=== PATIENT | male | born 1955 | race Caucasian/White ===

== ENCOUNTER 2016-09-26 01:26 | Inpatient (IN) | payer BC, OTHER ==
[2016-09-26] MEDS ORDERED: AMIODARONE HCL200 M1 PO (01:42)
[2016-09-26] MEDS ORDERED: ASPIRIN EC81 MG PO (01:42)
[2016-09-26] MEDS ORDERED: FEROSUL325 M1 PO (01:43)
[2016-09-26] MEDS ORDERED: FUROSEMIDE40 M2 PO (01:43)
[2016-09-26] MEDS ORDERED: NIASPAN500 M1 PO (01:44)
[2016-09-26] MEDS ORDERED: PROTONIX40 M2 PO (01:44)
[2016-09-26] MEDS ORDERED: MIDODRINE HCL5 M1 PO (01:44)
[2016-09-26] MEDS ORDERED: PRAVASTATIN SOD20 M1 PO (01:45)
[2016-09-26] MEDS ORDERED: K-TAB ER20 ME1 PO (01:45)
[2016-09-26] MEDS ORDERED: FLOMAX0.4 M1 PO (01:46)
[2016-09-26] MEDS ORDERED: COUMADIN2 M1 PO (01:46)
[2016-09-26 01:49] LABS: ABG CO2 ARTERIAL 29 mmol/L (21-27); ARTERIAL BLD GAS O2 SATURATION 96 % (95-98); ARTERIAL BLOOD GAS PCO2 36 mmHg (32-45); ARTERIAL PO2 84 mmHg (70-100); BICARBONATE 28 mmol/L (21-28); BLOOD GAS BASE EXCESS 5 mM/L (-/+3); PH 7.49 Units (7.35-7.45)
[2016-09-26 04:19] LABS: ABG CO2 ARTERIAL 29 mmol/L (21-27); ARTERIAL BLD GAS O2 SATURATION 98 % (95-98); ARTERIAL BLOOD GAS PCO2 33 mmHg (32-45); BICARBONATE 28 mmol/L (21-28); BLOOD GAS BASE EXCESS 6 mM/L (-/+3); PH 7.54 Units (7.35-7.45)
[2016-09-26 04:20] LABS: ARTERIAL PO2 96 mmHg (70-100)
[2016-09-26 04:32] LABS: BASO % 0.2 % (0-2); HGB-HEMOGLOBIN 11.7 gm/dl (13.5-17.0); IMMATURE GRANULOCYTES ABSOLUTE 0.07 tho/cmm (0-0.03); IMMATURE GRANULOCYTES PERCENT 0.5 % (0-0.3); LYMPH % 7.9 % (20-45); LYMPH ABSOLUTE COUNT 1.1 tho/cmm (0.8-4.5); MCH (MEAN CORPUSCULAR HGB) 27.9 pg (28.0-32.0); MCHC MEAN CORPUSCULAR HGB CONC 32.5 % (32.0-36.0); MCV (MEAN CELL VOLUME) 85.7 fl (82.0-96.0); MEAN PLATELET VOLUME 8.7 cmc (9.4-12.4); MONO % 6.6 % (0-12); MONOCYTE ABSOLUTE COUNT 0.9 tho/cmm (0.0-1.2); NEUTROPHIL ABSOLUTE COUNT 11.9 tho/cmm (1.6-8.0); NEUTROPHIL-AUTOMATED 11.9 tho/cmm (1.6-8.0); NEUTROPHILS % 84.8 % (40-80); PLATELET COUNT 299 tho/cmm (150-450); RED CELL DISTRIBUTION WIDTH 16.1 % (12.4-16.4)
[2016-09-26 04:35] LABS: INR 1.6 INR (0.9-1.1); PROTHROMBIN TIME 18.8 SECONDS (9.0-13.6)
[2016-09-26 05:49] LABS: ALB/GLOB RATIO 0.5 (0.8-2.0); ALBUMIN 2.7 g/dl (3.5-5.0); ALKALINE PHOSPHATASE 143 U/L (33-138); ALT/SGPT 80 U/L (12-78); ANION GAP 14 mmol/L (0-20); AST/SGOT 78 U/L (10-40); BILIRUBIN,TOTAL 1.2 mg/dl (0.0-1.5); BLOOD UREA NITROGEN 40 mg/dl (6-24); CALCIUM 8.8 mg/dl (8.5-10.5); CARBON DIOXIDE-VENOUS 30 mmol/L (22-32); CHLORIDE 97 mmol/l (96-110); CREATININE 1.44 mg/dl (0.60-1.30); GLUCOSE 107 mg/dL (70-110); POTASSIUM 3.2 mmol/L (3.7-5.1); SODIUM 138 mmol/L (135-145); eGFR VALUE FOR BLACK 60 mL/Min
[2016-09-26 12:38] LABS: ANION GAP 13 mmol/L (0-20); BLOOD UREA NITROGEN 39 mg/dl (6-24); CALCIUM 8.3 mg/dl (8.5-10.5); CARBON DIOXIDE-VENOUS 30 mmol/L (22-32); CHLORIDE 100 mmol/l (96-110); CREATININE 1.45 mg/dl (0.60-1.30); GLUCOSE 106 mg/dL (70-110); SODIUM 140 mmol/L (135-145); eGFR VALUE FOR BLACK 59 mL/Min
[2016-09-26 12:58] LABS: POTASSIUM 2.8 mmol/L (3.7-5.1)
[2016-09-27 05:01] LABS: BASO % 0.2 % (0-2); HCT-HEMATOCRIT 34.1 % (36.0-53.5); HGB-HEMOGLOBIN 10.8 gm/dl (13.5-17.0); IMMATURE GRANULOCYTES ABSOLUTE 0.04 tho/cmm (0-0.03); IMMATURE GRANULOCYTES PERCENT 0.3 % (0-0.3); LYMPH % 9.9 % (20-45); LYMPH ABSOLUTE COUNT 1.3 tho/cmm (0.8-4.5); MCH (MEAN CORPUSCULAR HGB) 27.2 pg (28.0-32.0); MCHC MEAN CORPUSCULAR HGB CONC 31.7 % (32.0-36.0); MCV (MEAN CELL VOLUME) 85.9 fl (82.0-96.0); MEAN PLATELET VOLUME 9.2 cmc (9.4-12.4); MONOCYTE ABSOLUTE COUNT 1.3 tho/cmm (0.0-1.2); NEUTROPHIL ABSOLUTE COUNT 10.4 tho/cmm (1.6-8.0); NEUTROPHIL-AUTOMATED 10.4 tho/cmm (1.6-8.0); NEUTROPHILS % 79.6 % (40-80); PLATELET COUNT 268 tho/cmm (150-450); RED BLOOD COUNT 3.97 mil/cmm (4.40-5.70); RED CELL DISTRIBUTION WIDTH 16.2 % (12.4-16.4)
[2016-09-27 05:18] LABS: ALB/GLOB RATIO 0.4 (0.8-2.0); ALBUMIN 2.3 g/dl (3.5-5.0); ALKALINE PHOSPHATASE 126 U/L (33-138); ANION GAP 10 mmol/L (0-20); BILIRUBIN,TOTAL 1.1 mg/dl (0.0-1.5); BLOOD UREA NITROGEN 34 mg/dl (6-24); C-REACTIVE PROTEIN 15.4 mg/dl (0-0.9); CALCIUM 8.5 mg/dl (8.5-10.5); CARBON DIOXIDE-VENOUS 29 mmol/L (22-32); CHLORIDE 102 mmol/l (96-110); CREATININE 1.18 mg/dl (0.60-1.30); GLUCOSE 105 mg/dL (70-110); POTASSIUM 3.8 mmol/L (3.7-5.1); SODIUM 137 mmol/L (135-145); eGFR VALUE FOR BLACK 76 mL/Min
[2016-09-27 05:27] LABS: ALT/SGPT 125 U/L (12-78); AST/SGOT 146 U/L (10-40)
[2016-09-27 05:35] LABS: ABG CO2 ARTERIAL 30 mmol/L (21-27); ARTERIAL BLD GAS O2 SATURATION 94 % (95-98); ARTERIAL BLOOD GAS PCO2 38 mmHg (32-45); ARTERIAL PO2 69 mmHg (70-100); BICARBONATE 29 mmol/L (21-28); BLOOD GAS BASE EXCESS 5 mM/L (-/+3); PH 7.49 Units (7.35-7.45)
[2016-09-27 06:10] LABS: PROCALCITONIN 2.98 ng/ml (0.05-0.09)
[2016-09-28 02:36] LABS: ANION GAP 13 mmol/L (0-20); BLOOD UREA NITROGEN 39 mg/dl (6-24); CALCIUM 8.5 mg/dl (8.5-10.5); CARBON DIOXIDE-VENOUS 26 mmol/L (22-32); CHLORIDE 98 mmol/l (96-110); CREATININE 1.36 mg/dl (0.60-1.30); GLUCOSE 141 mg/dL (70-110); POTASSIUM 4.8 mmol/L (3.7-5.1); SODIUM 132 mmol/L (135-145); eGFR VALUE FOR BLACK 64 mL/Min
[2016-09-28 02:42] LABS: ABG CO2 ARTERIAL 25 mmol/L (21-27); ARTERIAL BLD GAS O2 SATURATION 91 % (95-98); ARTERIAL BLOOD GAS PCO2 31 mmHg (32-45); ARTERIAL PO2 57 mmHg (70-100); BICARBONATE 24 mmol/L (21-28); BLOOD GAS BASE EXCESS 2 mM/L (-/+3)
[2016-09-28 14:12] LABS: BASO % 0.2 % (0-2); EOS % 0.2 % (0-7); HCT-HEMATOCRIT 33.4 % (36.0-53.5); HGB-HEMOGLOBIN 10.6 gm/dl (13.5-17.0); IMMATURE GRANULOCYTES ABSOLUTE 0.07 tho/cmm (0-0.03); IMMATURE GRANULOCYTES PERCENT 0.7 % (0-0.3); LYMPH % 12.7 % (20-45); LYMPH ABSOLUTE COUNT 1.4 tho/cmm (0.8-4.5); MCH (MEAN CORPUSCULAR HGB) 27.1 pg (28.0-32.0); MCHC MEAN CORPUSCULAR HGB CONC 31.7 % (32.0-36.0); MCV (MEAN CELL VOLUME) 85.4 fl (82.0-96.0); MEAN PLATELET VOLUME 9.1 cmc (9.4-12.4); MONO % 11.6 % (0-12); MONOCYTE ABSOLUTE COUNT 1.2 tho/cmm (0.0-1.2); NEUTROPHIL ABSOLUTE COUNT 7.9 tho/cmm (1.6-8.0); NEUTROPHIL-AUTOMATED 7.9 tho/cmm (1.6-8.0); NEUTROPHILS % 74.6 % (40-80); PLATELET COUNT 235 tho/cmm (150-450); RED BLOOD COUNT 3.91 mil/cmm (4.40-5.70); WHITE BLOOD COUNT 10.6 tho/cmm (4.0-10.0)
[2016-09-28 14:47] LABS: PROCALCITONIN 1.63 ng/ml (0.05-0.09)
[2016-09-29 05:34] LABS: INR 1.5 INR (0.9-1.1); PROTHROMBIN TIME 17.6 SECONDS (9.0-13.6)
[2016-09-29 05:45] LABS: BASO % 0.7 % (0-2); BASO ABSOLUTE COUNT 0.1 tho/cmm (0.0-0.2); HCT-HEMATOCRIT 33.8 % (36.0-53.5); HGB-HEMOGLOBIN 10.8 gm/dl (13.5-17.0); LYMPH % 13.8 % (20-45); LYMPH ABSOLUTE COUNT 1.5 tho/cmm (0.8-4.5); MCH (MEAN CORPUSCULAR HGB) 27.5 pg (28.0-32.0); MEAN PLATELET VOLUME 9.8 cmc (9.4-12.4); MONO % 13.1 % (0-12); MONOCYTE ABSOLUTE COUNT 1.4 tho/cmm (0.0-1.2); NEUTROPHIL ABSOLUTE COUNT 7.7 tho/cmm (1.6-8.0); NEUTROPHIL-AUTOMATED 7.7 tho/cmm (1.6-8.0); NEUTROPHILS % 72.4 % (40-80); PLATELET COUNT 235 tho/cmm (150-450); RED BLOOD COUNT 3.93 mil/cmm (4.40-5.70); WHITE BLOOD COUNT 10.6 tho/cmm (4.0-10.0)
[2016-09-29 05:53] LABS: ALB/GLOB RATIO 0.4 (0.8-2.0); ALBUMIN 2.1 g/dl (3.5-5.0); ALKALINE PHOSPHATASE 196 U/L (33-138); ALT/SGPT 329 U/L (12-78); ANION GAP 12 mmol/L (0-20); AST/SGOT 319 U/L (10-40); BILIRUBIN,TOTAL 1.3 mg/dl (0.0-1.5); BLOOD UREA NITROGEN 33 mg/dl (6-24); CALCIUM 8.1 mg/dl (8.5-10.5); CARBON DIOXIDE-VENOUS 24 mmol/L (22-32); CHLORIDE 99 mmol/l (96-110); CREATININE 0.99 mg/dl (0.60-1.30); GLUCOSE 104 mg/dL (70-110); MAGNESIUM 2.2 mg/dl (1.3-2.6); SODIUM 131 mmol/L (135-145); eGFR VALUE FOR BLACK >90 mL/Min
[2016-09-29 05:56] LABS: POTASSIUM 3.9 mmol/L (3.7-5.1)
[2016-09-29 07:09] LABS: PROCALCITONIN 1.22 ng/ml (0.05-0.09)
[2016-09-30 07:10] LABS: ALB/GLOB RATIO 0.5 (0.8-2.0); ALBUMIN 2.2 g/dl (3.5-5.0); ALKALINE PHOSPHATASE 264 U/L (33-138); ALT/SGPT 333 U/L (12-78); ANION GAP 8 mmol/L (0-20); AST/SGOT 254 U/L (10-40); BILIRUBIN,TOTAL 1.2 mg/dl (0.0-1.5); BLOOD UREA NITROGEN 26 mg/dl (6-24); C-REACTIVE PROTEIN 11.1 mg/dl (0-0.9); CALCIUM 8.3 mg/dl (8.5-10.5); CARBON DIOXIDE-VENOUS 28 mmol/L (22-32); CHLORIDE 102 mmol/l (96-110); CREATININE 0.94 mg/dl (0.60-1.30); GLUCOSE 113 mg/dL (70-110); PHOSPHOROUS 2.7 mg/dl (2.5-4.9); POTASSIUM 4.3 mmol/L (3.7-5.1); SODIUM 134 mmol/L (135-145); eGFR VALUE FOR BLACK >90 mL/Min
[2016-09-30 07:18] LABS: BASO % 0.4 % (0-2); BASO ABSOLUTE COUNT 0.1 tho/cmm (0.0-0.2); EOS % 0.6 % (0-7); EOSINOPHIL ABSOLUTE COUNT 0.1 tho/cmm (0.0-0.7); HCT-HEMATOCRIT 34.1 % (36.0-53.5); HGB-HEMOGLOBIN 10.8 gm/dl (13.5-17.0); IMMATURE GRANULOCYTES ABSOLUTE 0.21 tho/cmm (0-0.03); IMMATURE GRANULOCYTES PERCENT 1.7 % (0-0.3); LYMPH % 15.7 % (20-45); LYMPH ABSOLUTE COUNT 1.9 tho/cmm (0.8-4.5); MCH (MEAN CORPUSCULAR HGB) 27.1 pg (28.0-32.0); MCHC MEAN CORPUSCULAR HGB CONC 31.7 % (32.0-36.0); MCV (MEAN CELL VOLUME) 85.5 fl (82.0-96.0); MEAN PLATELET VOLUME 9.7 cmc (9.4-12.4); MONO % 12.3 % (0-12); MONOCYTE ABSOLUTE COUNT 1.5 tho/cmm (0.0-1.2); NEUTROPHIL ABSOLUTE COUNT 8.4 tho/cmm (1.6-8.0); NEUTROPHIL-AUTOMATED 8.4 tho/cmm (1.6-8.0); NEUTROPHILS % 69.3 % (40-80); PLATELET COUNT 255 tho/cmm (150-450); RED BLOOD COUNT 3.99 mil/cmm (4.40-5.70); RED CELL DISTRIBUTION WIDTH 15.9 % (12.4-16.4); WHITE BLOOD COUNT 12.1 tho/cmm (4.0-10.0)
[2016-09-30 08:11] LABS: INR 1.6 INR (0.9-1.1); PROTHROMBIN TIME 18.3 SECONDS (9.0-13.6)
[2016-09-30 08:13] LABS: PROCALCITONIN 0.76 ng/ml (0.05-0.09)
== END 2016-09-30 12:05 | disposition other institution (70) | DRG 871 ==
LOC: CCU 01:26
PROVIDERS: Hospitalist; Internal Medicine; Internal Medicine Cardiovascular Disease; Internal Medicine Infectious Disease; Internal Medicine Pulmonary Disease; Registered Nurse; ADMIT Internal Medicine
PROC: 02HV33Z Insertion of Infusion Device into Superior Vena Cava, Percutaneous Approach (ICD-10-PCS; principal; 2016-09-26)
DX: A41.9 Sepsis, unspecified organism (principal); I50.23 Acute on chronic systolic (congestive) heart failure; J96.01 Acute respiratory failure with hypoxia; G92 Toxic encephalopathy; I13.0 Hypertensive heart and chronic kidney disease with heart failure and stage 1 through stage 4 chronic kidney disease, or unspecified chronic kidney disease; I11.0 Hypertensive heart disease with heart failure; I48.0 Paroxysmal atrial fibrillation; I25.10 Atherosclerotic heart disease of native coronary artery without angina pectoris; N18.3 Chronic kidney disease, stage 3 (moderate); I73.9 Peripheral vascular disease, unspecified; E78.5 Hyperlipidemia, unspecified; I25.5 Ischemic cardiomyopathy; F17.210 Nicotine dependence, cigarettes, uncomplicated; R74.0 Nonspecific elevation of levels of transaminase and lactic acid dehydrogenase [LDH]; I69.328 Other speech and language deficits following cerebral infarction; Z88.0 Allergy status to penicillin; Z79.82 Long term (current) use of aspirin; Z79.01 Long term (current) use of anticoagulants; Z79.899 Other long term (current) drug therapy; Z95.5 Presence of coronary angioplasty implant and graft; Z95.810 Presence of automatic (implantable) cardiac defibrillator
CPT/HCPCS: C1751; J1250; J1630; J1940; J2060; J2185; J2250; J2543; J2997; J3010; J3370; J3480; J7050